=== PATIENT | female | born 1955 | race Caucasian/White ===

== ENCOUNTER 2018-11-04 17:47 | Inpatient (IN) | payer BC ==
[~2018-11-04] VITALS: Ht 165.1 cm; Wt 87.5 kg
[2018-11-04] MEDS ORDERED: ASPIRIN 81MG TABLET PO ONE (18:00)
[2018-11-04 18:18] LABS: BG BASE EXCESS -7.7 mmol/L (-2.0-2.0); BG BILEVEL POS AIRWAY PRESSURE 15/5; BG CARBOXYHEMOGLOBIN 0.3 % (0.5-1.5); BG DEOXYHEMOGLOBIN 1.3 % (0.0-5.0); BG HCO3 ACT 17.8 mmol/L (22.0-26.0); BG METHEMOGLOBIN 0.2 % (0.0-1.5); BG OXYGEN SATURATION 98.7 % (92.0-98.5); BG OXYHEMOGLOBIN 98.2 % (94.0-97.0); BG PH 7.312 (7.350-7.450); BG PO2 164.7 mmHg (75.0-100.0); BG SAMPLE SITE RIGHT RADIAL; BG TOTAL HEMOGLOBIN 8.8 g/dL (12.0-18.0); BG VENT MODE MASK - BIPAP; BG VENT RATE 12 set
[2018-11-04 18:19] LABS: BASOPHILS % 0.8 % (0.0-2.0); EOSINOPHILS % 3.1 % (0.0-5.0); HEMOGLOBIN. 8.7 g/dL (12.0-16.0); MEAN CORPUSCULAR HEMOGLOBIN 33.5 pg (28.0-32.0); MEAN CORPUSCULAR VOLUME 100.5 fL (81.0-99.0); MEAN PLATELET VOLUME 8.7 fl (7.4-10.4); MONOCYTES % 6.8 % (2.0-8.0); NEUTROPHILS % 76.3 % (40.0-76.0); PLATELET 214 x1000/uL (130-400); RED BLOOD CELL COUNT 2.59 mill/uL (4.2-5.4); RED CELL DISTRIBUTION WIDTH 12.7 % (11.6-14.6)
[2018-11-04 18:20] LABS: CHLORIDE 112 mEq/L (98-107)
[2018-11-04] MEDS ORDERED: FUROSEMIDE 40MG/4ML VIAL IVP ONE (19:45)
[2018-11-04] MEDS ORDERED: ALBUTEROL (0.083%) 2.5MG/3ML NEB HHN STA (21:13)
[2018-11-04] MEDS ORDERED: IPRATROPIUM BROMIDE (0.02%) 0.5MG/2.5ML NEB HHN STA (21:13)
[2018-11-05] MEDS ORDERED: MAGNESIUM/ALUMINUM HYDROXIDE/SIMETHICONE 30ML UDC PO PRN (03:15)
[2018-11-05] MEDS ORDERED: HYDROCODONE/ACETAMINOPHEN 5/325MG TABLET PO PRN (03:15)
[2018-11-05] MEDS ORDERED: CLONIDINE 0.1MG TABLET PO PRN (03:15)
[2018-11-05] MEDS ORDERED: ONDANSETRON HCL 4MG/2ML INJ IV PRN (03:15)
[2018-11-05] MEDS ORDERED: IPRATROPIUM/ALBUTEROL 0.5-3(2.5)MG/3ML NEB INH PRN (03:15)
[2018-11-05] MEDS ORDERED: DOCUSATE SODIUM 100MG CAPSULE PO PRN (03:15)
[2018-11-05] MEDS ORDERED: ACETAMINOPHEN 325MG TABLET PO PRN (03:15)
[2018-11-05 05:33] LABS: CREATINE KINASE MB FRACTION 3.9 ng/mL (0.5-3.6)
[2018-11-05 08:00] VITALS: BP 159/68
[2018-11-05] MEDS ORDERED: DEXTROSE 50% WATER 50ML SYRINGE IV PRN (08:00)
[2018-11-05] MEDS: BLOOD SUGAR DIAGNOSTIC STRIP TEST SCH ×4 (08:00→21:51)
[2018-11-05 08:40] VITALS: BP 159/68
[2018-11-05] MEDS ORDERED: FUROSEMIDE 40MG/4ML VIAL IV SCH (09:00)
[2018-11-05] MEDS: AMLODIPINE 10MG TABLET PO SCH (09:51)
[2018-11-05] MEDS: ENOXAPARIN 40MG/0.4ML SYR SUBCUT SCH (09:52)
[2018-11-05] MEDS: INSULIN LISPRO 100 UNITS/ML SUBCUT SCH ×4 (09:53→21:49)
[2018-11-05] MEDS ORDERED: LIDOCAINE HCL/PF 1% 2ML VIAL ONE (10:04)
[2018-11-05] MEDS ORDERED: IPRATROPIUM/ALBUTEROL 0.5-3(2.5)MG/3ML NEB HHN PRN (11:15)
[2018-11-05 12:00] VITALS: BP 136/58
[2018-11-05 12:15] LABS: T4 FREE 1.16 ng/dL (0.76-1.46)
[2018-11-05] MEDS: IPRATROPIUM/ALBUTEROL 0.5-3(2.5)MG/3ML NEB HHN SCH ×3 (13:24→19:58)
[2018-11-05] MEDS ORDERED: FOLI0.8C MT (14:42)
[2018-11-05] MEDS ORDERED: CARV25TA47 MT (14:42)
[2018-11-05] MEDS ORDERED: ATOR-2 MT (14:42)
[2018-11-05] MEDS ORDERED: LOSA50TA20 MT (14:42)
[2018-11-05] MEDS ORDERED: LEVO137T2 MT (14:42)
[2018-11-05] MEDS ORDERED: BUME1TAB4 MT (14:42)
[2018-11-05] MEDS ORDERED: AMLO10TA80 MT (14:42)
[2018-11-05] MEDS ORDERED: FERR325T23 MT (15:09)
[2018-11-05] MEDS ORDERED: ASCO-316 PO (15:09)
[2018-11-05 15:46] LABS: BG BASE EXCESS -1.9 mmol/L (-2.0-2.0); BG CARBOXYHEMOGLOBIN 0.3 % (0.5-1.5); BG DEOXYHEMOGLOBIN 4.7 % (0.0-5.0); BG FRACTION INSPIRED OXYGEN 32; BG HCO3 ACT 21.6 mmol/L (22.0-26.0); BG METHEMOGLOBIN 0.4 % (0.0-1.5); BG OXYGEN SATURATION 95.3 % (92.0-98.5); BG OXYHEMOGLOBIN 94.6 % (94.0-97.0); BG PCO2 32.1 mmHg (35.0-45.0); BG PH 7.446 (7.350-7.450); BG PO2 76.3 mmHg (75.0-100.0); BG SAMPLE SITE RIGHT RADIAL; BG TOTAL HEMOGLOBIN 9.3 g/dL (12.0-18.0); BG VENT MODE NASAL CANNULA
[2018-11-05 15:57] LABS: CREATINE KINASE MB FRACTION 3.5 ng/mL (0.5-3.6)
[2018-11-05 16:00] VITALS: BP 136/66
[2018-11-05 19:44] LABS: CLARITY URINE CLEAR (CLEAR); COLOR URINE YELLOW (YELLOW); KETONES URINE NEGATIVE (NEGATIVE); LEUKOCYTE ESTERASE URINE NEGATIVE (NEGATIVE); NITRITE URINE NEGATIVE (NEGATIVE); OCCULT BLOOD URINE 1+ (NEGATIVE); PH URINE 5.5 (4.5-8.0); PROTEIN URINE 1+ (NEGATIVE); UROBILINOGEN URINE 0.2 E.U./dL (0.2-1.0)
[2018-11-05 20:00] VITALS: BP 132/62
[2018-11-05] MEDS ORDERED: EPOETIN ALFA 10000UNITS/ML VIAL SUBCUT NR (21:00)
[2018-11-05] MEDS: FUROSEMIDE 40MG/4ML VIAL IV SCH (21:51)
[2018-11-06] VITALS: BP 125/53
[2018-11-06] MEDS: IPRATROPIUM/ALBUTEROL 0.5-3(2.5)MG/3ML NEB HHN SCH ×6 (00:51→20:34)
[2018-11-06 04:00] VITALS: BP 126/65
[2018-11-06 06:13] LABS: BASOPHILS % 0.9 % (0.0-2.0); EOSINOPHILS % 1.8 % (0.0-5.0); HEMATOCRIT. 23.9 % (36.0-48.0); HEMOGLOBIN. 7.9 g/dL (12.0-16.0); LYMPHOCYTES % 11.1 % (20.0-50.0); MEAN CORPUSCULAR HEMOGLOBIN 33.2 pg (28.0-32.0); MEAN CORPUSCULAR VOLUME 100.2 fL (81.0-99.0); MEAN PLATELET VOLUME 8.6 fl (7.4-10.4); NEUTROPHILS % 77.2 % (40.0-76.0); PLATELET 199 x1000/uL (130-400); RED BLOOD CELL COUNT 2.38 mill/uL (4.2-5.4); RED CELL DISTRIBUTION WIDTH 12.5 % (11.6-14.6)
[2018-11-06] MEDS: BLOOD SUGAR DIAGNOSTIC STRIP TEST SCH ×4 (06:45→21:00)
[2018-11-06 06:55] LABS: CHLORIDE 115 mEq/L (98-107)
[2018-11-06 07:02] LABS: TOTAL IRON BINDING CAPACITY 245 ug/dL (250-450)
[2018-11-06 07:04] LABS: PHOSPHORUS 3.5 mg/dL (2.5-4.9)
[2018-11-06 07:05] LABS: LDL CHOLESTEROL 47 mg/dL (5-100)
[2018-11-06 07:06] LABS: HDL CHOLESTEROL 40 mg/dL (40-59)
[2018-11-06] MEDS: INSULIN LISPRO 100 UNITS/ML SUBCUT SCH ×4 (07:15→22:11)
[2018-11-06 08:00] VITALS: BP 124/68
[2018-11-06] MEDS: ASPIRIN 81MG TABLET PO SCH (10:11)
[2018-11-06] MEDS: FUROSEMIDE 40MG/4ML VIAL IV SCH ×2 (10:11→22:10)
[2018-11-06] MEDS: AMLODIPINE 10MG TABLET PO SCH (10:11)
[2018-11-06] MEDS: ENOXAPARIN 40MG/0.4ML SYR SUBCUT SCH (10:12)
[2018-11-06 12:00] VITALS: BP 124/64
[2018-11-06] MEDS: FERROUS SULFATE 325MG TABLET PO SCH ×2 (13:27→18:14)
[2018-11-06 16:00] VITALS: BP 117/61
[2018-11-06 20:00] VITALS: BP 122/62
[2018-11-07] VITALS: BP 111/73
[2018-11-07] MEDS: IPRATROPIUM/ALBUTEROL 0.5-3(2.5)MG/3ML NEB HHN SCH ×5 (00:29→17:05)
[2018-11-07 04:00] VITALS: BP_SYST 119; BP_DIAS 76; BP_DIAS 96
[2018-11-07] MEDS: BLOOD SUGAR DIAGNOSTIC STRIP TEST SCH ×3 (06:50→17:20)
[2018-11-07] MEDS: INSULIN LISPRO 100 UNITS/ML SUBCUT SCH ×3 (07:00→17:38)
[2018-11-07] MEDS: FERROUS SULFATE 325MG TABLET PO SCH ×3 (07:00→17:38)
[2018-11-07 07:10] LABS: EOSINOPHILS % 4.6 % (0.0-5.0); HEMATOCRIT. 24.1 % (36.0-48.0); HEMOGLOBIN. 8.1 g/dL (12.0-16.0); MEAN CORPUSCULAR HEMOGLOBIN 33.6 pg (28.0-32.0); MEAN CORPUSCULAR VOLUME 100.2 fL (81.0-99.0); MEAN PLATELET VOLUME 8.4 fl (7.4-10.4); MONOCYTES % 9.7 % (2.0-8.0); NEUTROPHILS % 70.7 % (40.0-76.0); PLATELET 190 x1000/uL (130-400); RED CELL DISTRIBUTION WIDTH 12.6 % (11.6-14.6)
[2018-11-07 07:59] LABS: PHOSPHORUS 2.9 mg/dL (2.5-4.9)
[2018-11-07 08:00] VITALS: BP 121/53
[2018-11-07] MEDS ORDERED: ENOXAPARIN 30MG/0.3ML SYR SUBCUT SCH (09:00)
[2018-11-07] MEDS: ASPIRIN 81MG TABLET PO SCH (09:05)
[2018-11-07] MEDS: AMLODIPINE 10MG TABLET PO SCH (09:05)
[2018-11-07] MEDS: FUROSEMIDE 40MG/4ML VIAL IV SCH (09:05)
[2018-11-07] MEDS ORDERED: REGADENOSON 0.4 MG/5 ML IV ONE ×2 (10:00→11:29)
[2018-11-07 12:00] VITALS: BP 122/68
[2018-11-07 16:00] VITALS: BP 114/49
[2018-11-07 18:28] VITALS: BP 114/49
== END 2018-11-07 18:55 | disposition home or self-care (01) | DRG 291 ==
LOC: ER 17:47 → 5WST 20:24 → EDBEDREQTM 20:28 → EDBEDREQ 20:28 → SUPCPDRO 11-05 03:10 → ENRESERV 11-05 03:42 → 5WST 11-05 06:31
PROVIDERS: ADMIT Hospitalist; ATTEND Hospitalist
DX: I13.0 Hypertensive heart and chronic kidney disease with heart failure and stage 1 through stage 4 chronic kidney disease, or unspecified chronic kidney disease (principal); I50.23 Acute on chronic systolic (congestive) heart failure; J96.01 Acute respiratory failure with hypoxia; N17.9 Acute kidney failure, unspecified; N18.4 Chronic kidney disease, stage 4 (severe); E11.22 Type 2 diabetes mellitus with diabetic chronic kidney disease; I25.10 Atherosclerotic heart disease of native coronary artery without angina pectoris
CPT/HCPCS: 36415; 36600; 71045; 76770; 78452; 78580; 80048; 80061; 82375; 82550; 82553; 82728; 82805; 82962; 83036; 83540; 83550; 83735; 83880; 84100; 84439; 84443; 84484; 85379; 93005; 93017; 93306; 93970; 94640; 94660; 96374; 99291; A9500; J0885; J1650; J1815; J1940; J2785; J3490; J7620; A4315